=== PATIENT | female | born 1950 | race Caucasian/White ===

== ENCOUNTER 2019-03-17 01:47 | Emergency (ER) | payer BC, OTHER ==
[~2019-03-17] VITALS: Ht 165.1 cm; Wt 93.7 kg
[~2019-03-17 01:47] MED LIST: LEVO50TA89 PO
[2019-03-17 01:55] VITALS: Ht 165.1 cm; Wt 93.7 kg
[2019-03-17] MEDS ORDERED: KETOROLAC 15 MG INJ IV STA (04:02)
--- NOTE | 2019-03-17 04:35 | ERD ---
ER Documentation Chief Complaint Chief Complaint chest pain x 30 minutes HPI This is a 68-year-old female complains of reproducible right-sided chest pain for the past 30 minutes awoke. Says is painful to palpation. She denies any fevers chills nausea vomiting shortness of breath. She denies any palpitations. ROS All systems reviewed and are negative except as per history of present illness. Medications Home Meds Reported Medications Levothyroxine Sodium* (Synthroid*) 50 Mcg Tablet, 50 MCG PO DAILY 05/23/13 Allergies Allergies: Coded Allergies: Penicillins (Verified Allergy, Unknown, 05/23/13) PMhx/Soc History of Surgery: No Anesthesia Reaction: No Hx Neurological Disorder: No Hx Respiratory Disorders: No Hx Cardiac Disorders: No Hx Psychiatric Problems: No Hx Miscellaneous Medical Probl: Yes (HYPOTHYROIDISM) Hx Alcohol Use: No Hx Substance Use: No Hx Tobacco Use: No Smoking Status: Never smoker Physical Exam Vitals Vital Signs Date Temp Pulse Resp B/P (MAP) Pulse Ox O2 O2 Flow FiO2 Time Delivery Rate 03/17/19 97.2 93 18 137/93 96 01:55 (108) Physical Exam Const: No acute distress Head: Atraumatic Eyes: Normal Conjunctiva ENT: Normal External Ears, Nose and Mouth. Neck: Full range of motion. No meningismus. Resp: Clear to auscultation bilaterally Cardio: Regular rate and rhythm, no murmurs Abd: Soft, non tender, non distended. Normal bowel sounds Skin: No petechiae or rashes Back: No midline or flank tenderness Ext: No cyanosis, or edema Neur: Awake and alert Psych: Normal Mood and Affect Result Diagram: 03/17/19 0313 03/17/19 0313 Results 24 hrs Laboratory Tests Test 03/17/19 03:13 White Blood Count 6.4 10^3/ul Red Blood Count 4.79 10^6/ul Hemoglobin 14.1 g/dl Hematocrit 43.8 % Mean Corpuscular Volume 91.4 fl Mean Corpuscular Hemoglobin 29.4 pg Mean Corpuscular Hemoglobin Concent 32.2 g/dl Red Cell Distribution Width 12.7 % Platelet Count 196 10^3/UL Mean Platelet Volume 8.8 fl Immature Granulocytes % 0.300 % Neutrophils % 59.3 % Lymphocytes % 29.3 % Monocytes % 6.9 % Eosinophils % 3.7 % Basophils % 0.5 % Nucleated Red Blood Cells % 0.0 /100WBC Immature Granulocytes # 0.020 10^3/ul Neutrophils # 3.8 10^3/ul Lymphocytes # 1.9 10^3/ul Monocytes # 0.4 10^3/ul Eosinophils # 0.2 10^3/ul Basophils # 0.0 10^3/ul Nucleated Red Blood Cells # 0.0 10^3/ul Sodium Level 142 mmol/L Potassium Level 3.9 mmol/L Chloride Level 104 mmol/L Carbon Dioxide Level 30 mmol/L Anion Gap 8 Blood Urea Nitrogen 15 mg/dl Creatinine 0.85 mg/dl Est Glomerular Filtrat Rate mL/min > 60 mL/min Glucose Level 135 mg/dl Calcium Level 9.5 mg/dl Total Bilirubin 0.5 mg/dl Direct Bilirubin 0.00 mg/dl Indirect Bilirubin 0.5 mg/dl Aspartate Amino Transf (AST/SGOT) 33 IU/L Alanine Aminotransferase (ALT/SGPT) 38 IU/L Alkaline Phosphatase 143 IU/L Troponin I 0.023 ng/ml B-Type Natriuretic Peptide 55 PG/ML Total Protein 7.5 g/dl Albumin 4.1 g/dl Globulin 3.40 g/dl Albumin/Globulin Ratio 1.20 Current Medications Medications Dose Sig/Forrest Start Time Status Last (Trade) Ordered Route PRN Stop Time Admin Dose Reason Admin Ketorolac 15 mg ONCE STAT 03/17/19 DC 03/17/19 Tromethamine IV 04:02 04:26 (Toradol) 03/17/19 04:03 Procedures/MDM EKG: Rate/Rhythm: [Normal Sinus Rhythm] QRS, ST, T-waves: [No changes consistent w/ acute ischemia] Impression: [No evidence of ischemia or arrhythmia] Chest X-ray 1V Interpreted by me: Soft Tissue: No acute abnormalities Bones: No acute abnormalities Mediastinum/Cardiac Silhouette/Lungs: [No acute abnormalities] Patient's thoracic symptoms have stabilized while in the department and are stable for outpatient follow up. Exam and work up not consistent w/ ischemia, arrhythmia, PE or dissection. Departure Diagnosis: Primary Impression: Chest pain Chest pain type: unspecified Qualified Codes: R07.9 - Chest pain, unspecified Condition: Stable Patient Instructions: Chest Pain, Uncertain Cause CHAR CAMPBELL Mar 17, 2019 04:34
[2019-03-17 05:25] VITALS: BP 142/91; PULSE 83; RESP 16
== END 2019-03-17 05:27 | disposition home or self-care (01) ==
LOC: E/R 01:47
DX: R07.9 Chest pain, unspecified (principal); E03.9 Hypothyroidism, unspecified
CPT/HCPCS: 36415; 71045; 80053; 83880; 84484; 85025; 93005; 96374; 99285; J1885